=== PATIENT | male | born 1975 | race Caucasian/White ===

== ENCOUNTER 2023-03-23 21:38 | Emergency (ER) | payer OTHER, SELFPAY ==
[2023-03-23 21:39] VITALS: BP 141/97; PULSE 107; RESP 16; TEMP 36.4; O2SAT 99; BMI 28.0
[2023-03-23 22:08] LABS: Basophil# 0.06 X10^3/uL; Basophil% 0.6 % (0-1); Eosinophil# 0.17 X10^3/uL; Eosinophils% 1.8 % (0-5); Hematocrit 41.1 % (40-54); Hemoglobin 13.1 g/dL (13.0-16.5); Lymphocyte % 25.3 % (19-41); Mean Corp Hgb Conc 31.9 g/dL (32-36); Mean Corpuscular Hgb 27.4 pg (27.0-32.0); Mean Platelet Vol. 9.7 fl (6.2-12.0); Monocyte# 0.87 X10^3/uL; Monocyte% 9.2 % (0-10); NRBC Flagged by Analyzer 0 % (0-5); Neutrophil # 5.97 X10^3/uL (2.7-7.7); Neutrophil % 62.8 % (47-70); Platelet Count 356 K/mm3 (150-450); RBC Distribution Width CV 12.7 % (11.6-14.6); RBC Distribution Width SD 39.8 fl (35.1-43.9); Red Blood Count 4.78 M/mm3 (4.6-6.2); White Blood Count 9.5 K/mm3 (4.4-11.0)
[2023-03-23 22:25] LABS: ALB/GLOB Ratio 1.3 RATIO (0.9-2.4); AST(SGOT) 27 U/L (15-37); Alanine Aminotransfer ALT/SGPT 58 U/L (16-61); Alkaline Phosphatase 93 U/L (45-117); Anion Gap 6 (5-15); BUN 20 mg/dL (7-18); BUN/Creat Ratio 14.5 RATIO (10-20); Calcium,Total 8.8 mg/dL (8.5-10.1); Chloride 107 mmol/L (98-107); Creatinine, Serum 1.38 mg/dL (0.70-1.30); EST Glomerular Filtration Rate 58 mL/min (>60); Est Glom Filt Rate - Afr Amer 70 mL/min (>60); Estimated Creatinine Clearance 64.75 ml/min; Globulin 3.1 g/dL (2.2-4.2); Glucose 145 mg/dL (74-106); Potassium 3.9 mmol/L (3.5-5.1); Protein, Total 7.1 g/dL (6.4-8.2); Sodium Level 139 mmol/L (136-145)
--- NOTE | 2023-03-23 23:04 | CT_ITS ---
STUDY: CT ABDOMEN AND PELVIS WITH CONTRAST - URINARY TRACT REASON FOR EXAM: Male, 47 years old. gi bleed RADIATION DOSAGE (If Supplied By Facility): CTDIvol = ( 17.61 ) mGy, DLP = ( 988.87 ) mGycm TECHNIQUE: IV 100mL Isovue-370 was administered. Transaxial images were obtained from the dome of the diaphragm to the symphysis pubis in the arterial, nephrographic and excretory phases. Multiplanar coronal and sagittal images were reformatted. Individualized Dose Optimization Techniques Were Used For This CT. COMPARISON: No relevant prior comparison study available FINDINGS: The visualized lung bases are unremarkable. The visualized portions of the heart are within normal limits. Normal liver. Normal gallbladder and extrahepatic biliary system. Normal spleen. Normal pancreas. Normal bilateral adrenal glands. Normal visualized stomach. Normal small intestine. There are multiple colonic diverticula consistent with diverticulosis. The colon is on the left side of the abdomen consistent with bowel malrotation. There is contrast extravasation in the cecum consistent with active bleeding. The appendix is visualized and appears normal. Normal abdominal aorta. No retroperitoneal adenopathy. Normal right kidney. Normal left kidney. Normal urinary bladder. Normal abdominal wall. Normal osseous structures. CT/Abdomen/Pelvis W IV Cont ONLY IMPRESSION: Colon diverticulosis. Active bleeding in the cecum. Electronically Signed: Stephani Reilly MD at 0:10 EST ,
--- NOTE | 2023-03-23 23:05 | EDS_ITS ---
HPI HPI - GI History of Present Illness Chief Complaint: GI Bleed Narrative Narrative: 47-year-old male presenting with GI bleed. Patient states he had a colonoscopy done by Dr. Lyle at [place]. States he had a polypectomy. Feels otherwise well. States she had several episodes of dark red bleeding per rectum. No fevers or chills. No nausea or vomiting. PFSH PFSH Home Medications atorvastatin 40 mg tablet 40 mg PO QHS 03/24/23 [History Last Taken Unknown] lisinopril 10 mg-hydrochlorothiazide 12.5 mg tablet 1 tab PO DAILY 03/24/23 [History Last Taken Unknown] Allergy/AdvReac Type Severity Reaction Status Date / Time No Known Allergies Allergy Verified 03/23/23 21:41 Social History Smoking Status: Never smoker ROS ROS ED Constitutional Constitutional ED: Denies chills, fever(s) or sweats Eyes Eyes: Denies blurry vision or change in vision ENT ENT ED: Denies ear pain or sore throat Cardiovascular Cardiovascular: Denies chest pain, palpitations or racing heartbeat Respiratory/Chest Respiratory/Chest: Denies cough, dyspnea or sputum Gastrointestinal Gastrointestinal: Reports other Details: GI bleeding ; Denies abdominal pain, constipation, diarrhea, nausea or vomiting Genitourinary Genitourinary ED: Denies dysuria, hematuria or urinary frequency Musculoskeletal Musculoskeletal: Denies arthralgias, myalgias or neck pain Integumentary Denies abscess, Abrasions or rash Neurologic Neurologic: Denies headache(s), paresthesias or weakness Psychiatric Psychiatric: Denies anxiety, depression, suicidal ideation or suicidal thoughts Endocrine Endocrinology: Denies polydipsia or polyuria EXAM Physical Exam Const Vital Signs: 03/23/23 21:39 03/24/23 02:18 03/24/23 03:47 Temperature 97.5 F L Temperature Source Temporal Pulse Rate 107 H 103 H 98 Respiratory Rate 16 18 18 Blood Pressure 141/97 H 101/77 119/73 Blood Pressure Mean 111 85 88 Pulse Ox 99 96 96 Oxygen Delivery Method Room Air Room Air Room Air 03/24/23 05:24 03/24/23 06:09 Temperature 97.8 F Temperature Source Pulse Rate 97 88 Respiratory Rate 15 26 H Blood Pressure 129/81 H 129/48 H Blood Pressure Mean 97 75 Pulse Ox 96 98 Oxygen Delivery Method Room Air Positive well nourished General Appearance ED: NAD; Negative for pallor HEENT Reports moist mucous membranes normocephalic Eyes PERRL and EOMs intact bilaterally GI non-tender Back/Spine no CVA tenderness Neuro CN's II-XII intact bilaterally, moves all extremities and no sensory deficits noted Sensorium / Orientation: alert Motor Exam: strength 5/5 throughout Psych mental status grossly normal and thought process normal Skin no wounds General Skin Exam: Negative for jaundice or pallor MDM MDM MDM Narrative Medical decision making narrative: Patient presenting with GI bleed status post polypectomy yesterday. CBC will be obtained to assess white blood cell count, hemoglobin and platelets. CMP to assess liver function, renal function, electrolytes. Patient typed and screened. Abdominal exam is benign. CBC shows normal white blood cell count 9.5. Hemoglobin 13.1. Platelets are normal at 356. LFTs normal. Creatinine slightly elevated at 1.38 without comparison labs. Urinalysis negative. Patient remained hemodynamically stable although he has had several bowel movements which are bloody in the ER. I repeated an H&H which shows his hemoglobin is now down to 10.3. I had been trying to get a hold of general surgery on-call for Dr. Ragsdale for over an hour and since I had returned a call back. I did speak to Dr. Patel who is on-call for GI and he recommended the patient be transferred as this is a postoperative complication. I again paged general surgery on-call for Dr. Lyle and I was able to speak to Dr. John who did accept the patient to be transferred. Attempted to talk to the emergency room to get a ER to ER transfer and they declined stating that they had to ice puller the emergency room and at this point I spoke with the transfer line to try to arrange a bed. Currently I am awaiting a bed assignment so I can transfer him however the patient went to the restroom to have a bowel movement and fainted and went unresponsive on the toilet therefore I have paged them again to see if I can get a faster transfer due to the GI bleed/anemia. They stated to me that they cannot tell me how long the bed assignment will take. They do not have any roundabout figure as to when the patient will be transferred. I cannot call for the squad until I get a bed assignment. Patient has a bed assignment and currently waiting to be transferred to [place]. He still normotensive. His hemoglobin went from 13.1 down to 9.2 and appears to have stabilized at this level. Patient has not had a bloody bowel movement in a while. Impression: 1. Lower GI bleed 2. Acute blood loss anemia 3. Postoperative bleeding Lab Data Labs: Laboratory Results - last 24 hr 03/23/23 03/23/23 03/24/23 21:53 23:58 01:45 WBC 9.5 RBC 4.78 Hgb 13.1 10.3 L Hct 41.1 32.2 L MCV 86.0 MCH 27.4 MCHC 31.9 L RDW Std Deviation 39.8 RDW Coeff of [place] 12.7 Plt Count 356 MPV 9.7 Immature Gran % (Auto) 0.300 Neut % (Auto) 62.8 Lymph % (Auto) 25.3 [place] % (Auto) 9.2 Eos % (Auto) 1.8 Baso % (Auto) 0.6 Absolute Neuts (auto) 6.0 Absolute Lymphs (auto) 2.40 Nucleated RBC % 0 Sodium 139 Potassium 3.9 Chloride 107 Carbon Dioxide 26.0 Anion Gap 6 BUN 20 H Creatinine 1.38 H Estim Creat Clear Calc 64.75 Est GFR (MDRD) Af Amer 70 Est GFR (MDRD) Non-Af 58 L BUN/Creatinine Ratio 14.5 Glucose 145 H Calcium 8.8 Total Bilirubin 0.30 AST 27 ALT 58 Alkaline Phosphatase 93 Total Protein 7.1 Albumin 4.0 Globulin 3.1 Albumin/Globulin Ratio 1.3 Urine Color Yellow Urine Clarity Clear Urine pH 6.5 Ur Specific [place] 1.015 Urine Protein 30 H Urine Glucose (UA) Normal Urine Ketones 5 H Urine Occult Blood Negative Urine Nitrite Negative Urine Bilirubin Negative Urine Urobilinogen Normal Ur Leukocyte Esterase 25 H Urine RBC 0-5 SEEN Urine WBC 0 SEEN Ur Squamous Epith Cells 0 SEEN Urine Bacteria 0 SEEN Urine Mucus 0 SEEN Blood Type O POSITIVE Antibody Screen NEGATIVE 03/24/23 03/24/23 03:45 05:20 WBC RBC Hgb 9.4 L 9.2 L Hct 29.2 L 28.5 L MCV MCH MCHC RDW Std Deviation RDW Coeff of [place] Plt Count MPV Immature Gran % (Auto) Neut % (Auto) Lymph % (Auto) [place] % (Auto) Eos % (Auto) Baso % (Auto) Absolute Neuts (auto) Absolute Lymphs (auto) Nucleated RBC % Sodium Potassium Chloride Carbon Dioxide Anion Gap BUN Creatinine Estim Creat Clear Calc Est GFR (MDRD) Af Amer Est GFR (MDRD) Non-Af BUN/Creatinine Ratio Glucose Calcium Total Bilirubin AST ALT Alkaline Phosphatase Total Protein Albumin Globulin Albumin/Globulin Ratio Urine Color Urine Clarity Urine pH Ur Specific [place] Urine Protein Urine Glucose (UA) Urine Ketones Urine Occult Blood Urine Nitrite Urine Bilirubin Urine Urobilinogen Ur Leukocyte Esterase Urine RBC Urine WBC Ur Squamous Epith Cells Urine Bacteria Urine Mucus Blood Type Antibody Screen Radiography Diagnostic Testing: Clinical Impression(s) from Imaging Studies Abdomen/Pelvis CT 03/23/23 23:04 IMPRESSION: Colon diverticulosis. Active bleeding in the cecum. Electronically Signed: Stephani Reilly MD at 0:10 EST , Discharge Plan Triage Chief Complaint: GI Bleed ED Provider: Reji Velasquez Dx/Rx/DC Orders Prescriptions: No Action lisinopril-hydrochlorothiazide 10-12.5 mg tablet 1 tab PO DAILY atorvastatin 40 mg tablet 40 mg PO QHS Primary Care Provider: [facility],[place] Referrals: [facility],[place] [Primary Care Provider] -
[2023-03-24 00:02] LABS: Bacteria 0 SEEN /hpf (None Seen); Mucous, Urine 0 SEEN /hpf (<or=2+); Squamous Epithelial Cells - UA 0 SEEN /hpf (0-5); White Blood Cells 0 SEEN /hpf (0-5)
[2023-03-24 00:06] LABS: Color, Urine Yellow (Yellow); Glucose, Dipstick Normal (Normal); Ketone-Dipstick 5 mg/dl (Negative); Leukocyte Esterase-Dipstick 25 /ul (Negative); Nitrite-Dipstick Negative (Negative); Occult Blood-Urine Negative /ul (Negative); Protein-Dipstick 30 mg/dl (Negative); Specific Gravity, Urine 1.015 (1.002-1.030); Urine Bilirubin Dipstick Negative (Negative); Urine Clarity Clear (Clear); Urine Urobilinogen Normal (Normal); Urine pH 6.5 (5.0 - 8.0)
[2023-03-24 00:28] LABS: Red Blood Cells-Urine 0-5 SEEN /hpf (0-5)
[2023-03-24 01:53] LABS: Hematocrit 32.2 % (40-54); Hemoglobin 10.3 g/dL (13.0-16.5)
--- NOTE | 2023-03-24 02:01 | ED.RN ---
DR. CASSIDY PAGED AT THIS TIME
[2023-03-24] MEDS: 0.9% Normal Saline (1000mL) 1,000 ML 999 ML IV (02:16)
[2023-03-24 02:18] VITALS: BP 101/77; PULSE 103; RESP 18; O2SAT 96
--- NOTE | 2023-03-24 02:19 | ED.RN ---
[facility] TRANSFER CALLED FOR TRANSFER TO [facility]
--- NOTE | 2023-03-24 02:59 | ED.RN ---
PT REQUESTED TO AMBULATE TO BATHROOM TO HAVE BOWEL MOVEMENT, THIS NURSE GOT A W/C AND STOOD PT UP FROM BED AND TOOK PT TO BATHROOM. PT C/O DIZZINESS, PT THEN HAD SYNCOPAL EPISODE AND BECAME DIAPHORETIC. PT AROUSED AND THEN HAD 2ND SYNCOPAL EPISODE AND VALORIE FROM REGISTRATION RAN AND GOT DR. ORDOÑEZ. DR. ORDOÑEZ ARRIVED TO SEE PT AROUSED AND WAS DIAPHORETIC, NO NEW ORDERS AT THIS TIME. PT IMMEDIATELY TAKEN BACK TO ROOM 16 AND PLACED IN BED.
[2023-03-24 03:47] VITALS: BP 119/73; PULSE 98; RESP 18; O2SAT 96
[2023-03-24 03:53] LABS: Hematocrit 29.2 % (40-54); Hemoglobin 9.4 g/dL (13.0-16.5)
[2023-03-24 05:24] VITALS: BP 129/81; PULSE 97; RESP 15; O2SAT 96
--- NOTE | 2023-03-24 05:25 | ED.RN ---
PATIENT HAD LARGE BOWEL MOVEMENT AT THIS TIME. DR. ORDOÑEZ MADE AWARE AND REPEAT ORDER FOR H &H GIVEN. PATIENT AWAITING TRANSPORT AT THIS TIME TO [facility]. FAMILY UPDATED AND MADE AWARE OF PLAN OF CARE AT THIS TIME
[2023-03-24 05:30] LABS: Hematocrit 28.5 % (40-54); Hemoglobin 9.2 g/dL (13.0-16.5)
[2023-03-24 06:09] VITALS: BP 129/48; PULSE 88; RESP 26; TEMP 36.6; O2SAT 98
== END 2023-03-24 07:03 | disposition short-term general hospital (02) ==
PROVIDERS: Emergency Provider Student in an Organized Health Care Education/Training Program; Visit Provider Student in an Organized Health Care Education/Training Program
DX: K91.840 Postprocedural hemorrhage of a digestive system organ or structure following a digestive system procedure (principal); K92.2 Gastrointestinal hemorrhage, unspecified; D62 Acute posthemorrhagic anemia; Z79.899 Other long term (current) drug therapy
CPT/HCPCS: 74177; 80053; 81001; 85014; 85018; 85025; 86850; 86900; 86901; 96360; 96361; 99285; J7030; Q9967; A4216